=== PATIENT | male | born 1935 | race Caucasian/White ===

== ENCOUNTER → 2019-10-17 | Day surgery (SDC) | payer MEDICARE ==
[2019-10-13 14:42] LABS: BASOPHILS # (AUTO) 0.1 (0.0-0.1); BASOPHILS % 0.8 % (0.0-1.0); EOSINOPHILS # (AUTO) 0.1 (0.0-0.4); EOSINOPHILS % 1.5 % (0.0-6.0); HEMATOCRIT 42.9 % (38.2-49.6); HEMOGLOBIN 13.8 g/dL (14.0-18.0); LYMPHOCYTES # (AUTO) 1.9 (1.0-3.2); LYMPHOCYTES % 26.6 % (18.0-39.1); MEAN CORPUSCULAR HEMOGLOBIN 28.8 pg (28-32); MEAN CORPUSCULAR HGB CONC 32.2 g/dL (31-35); MEAN CORPUSCULAR VOLUME 89.4 fL (81-99); MONOCYTES # (AUTO) 0.6 (0.2-0.8); MONOCYTES % 8.6 % (4.4-11.3); NEUTROPHILS # (AUTO) 4.5 (2.1-6.9); NEUTROPHILS % 62.2 % (38.7-80.0); PLATELET COUNT 296 x10e3/uL (140-360); RED CELL DISTRIBUTION WIDTH 14.1 % (11.7-14.4)
--- NOTE | 2019-10-13 14:45 | Diagnostic Imaging Report ---
EXAMINATION: CHEST 2 VIEWS INDICATION: Pre-operative COMPARISON: None FINDINGS: LINES/TUBES:None LUNGS:The lungs are hyperinflated. Bilateral emphysematous changes. Mild biapical pleural parenchymal thickening/scarring. No focal consolidation or pulmonary edema. Small bilateral subcentimeter calcified granulomas. PLEURA:No pleural effusion or pneumothorax. MEDIASTINUM:The cardiomediastinal silhouette appears normal in size and shape. Atherosclerotic calcifications of the thoracic aorta. BONES/SOFT TISSUES:No acute osseous injury. ABDOMEN:No free air under the diaphragm. IMPRESSION: Hyperinflated lungs with emphysematous changes. No focal pneumonia or pulmonary edema. Signed by: Poornima Kelley MD on 10/13/2019 2:41 PM
[~2019-10-17] MED LIST: ACETAMINOPHEN/CODEINE 300MG - 30MG TAB ONE; BUPIVACAINE 0.25% 30ML SDV INJ ONE; BUPIVACAINE 7.5MG/ML /DEXTROSE 82.5MG/ML 2 ML AMP INJ ONE; CEFAZOLIN SOD 1 GM/NS 50ML 100 ML IV ONE; FENTANYL CITRATE/PF 100MCG/2 ML INJ ONE; LIDOCAINE HCL 1% LOCAL INJ 20 ML VIAL ONE; LISINOPRIL10 MG PO; MIDAZOLAM HCL 2 MG/2 ML VIAL ONE
--- NOTE | 2019-10-17 09:32 | Operative Report ---
DATE OF PROCEDURE: 10/17/2019 SURGEON: Kg Méndez MD PREOPERATIVE DIAGNOSIS: Large left inguinal hernia. POSTOPERATIVE DIAGNOSIS: Large left inguinal hernia. PREOPERATIVE INDICATION: Treat disease, prevent complications related to hernia such as incarceration or strangulation. PROCEDURE: Open repair of left inguinal hernia with polypropylene plug. ANESTHESIA: Spinal with local anesthesia. HEAD SUGAR REPROCESS OPERATOR: Angel Almendarez, surgical consultant (needed due to complexity of case). FLUIDS: As per anesthesia. ESTIMATED BLOOD LOSS: 20 mL. DRAINS: None. COMPLICATIONS: None. SPECIMENS: Hernia sac. GRAFTS: Large polypropylene Bard mesh PerFix plug. FINDINGS: Large indirect inguinal hernia with herniated omentum. PROCEDURE IN DETAIL: The patient was brought to the operating room and was given a spinal anesthetic. A preprocedure pause performed. He was sterilely prepped and draped in the usual fashion. Local anesthesia was applied over the incision site. A left iliac fossa incision was made. Dissection was carried through the subcutaneous tissues, Kanchan's fascia, down to the external oblique aponeurosis. An external oblique aponeurotic incision was made along the length of its fibers. I then was able to encircle the cord structures with a [place] drain. I found a large hernia with a pretty significant hernia sac and dissected out the hernia sac until I was able to reduce this through the internal ring. I did take a portion of the hernia sac in order to reduce the bulk of the hernia. I pushed the remainder of the hernia sac. After tying it with a 2-0 silk suture, back into the peritoneal cavity, we then placed a large Bard mesh PerFix plug through this internal ring and suture fixated to the conjoined tendon as well as the shelving edge of the inguinal ligament with multiple interrupted 2-0 Prolene sutures. Once that was complete, I then inspected the inguinal floor. The inguinal floor appeared to be in great shape and no laxity noted. I then decided that the repair was complete. We then irrigated the peritoneal sac. We irrigated the wound with sterile saline and aspirated dry. I then closed the external oblique aponeurosis with 2-0 Vicryl suture in a continuous fashion. Kanchan's fascia was approximated with 3-0 Vicryl suture in an interrupted fashion. A 4-0 Monocryl suture was used for the skin incision site in a continuous fashion. We used a total of 30 mL of 0.25% bupivacaine for local anesthesia as well as 10 mL of 1% lidocaine. The patient tolerated the procedure well. Type of wound is type 1, clean. All surgical sponge and instrument counts were correct. MD DONNA Isaacs/MODL /[id number]
[2019-10-17 10:00] VITALS: BP 156/92
== END | disposition home or self-care (01) ==
LOC: OR 05:42
PROVIDERS: ATTEND Surgery
DX: K40.90 Unilateral inguinal hernia, without obstruction or gangrene, not specified as recurrent (principal); I10 Essential (primary) hypertension; Z01.810 Encounter for preprocedural cardiovascular examination; Z01.812 Encounter for preprocedural laboratory examination; Z01.818 Encounter for other preprocedural examination; Z11.59 Encounter for screening for other viral diseases; Z87.891 Personal history of nicotine dependence
CPT/HCPCS: 36415; 49505; 71046; 85025; 87635; 88302; 93005; J0690; J2001; J2250; J3010